=== PATIENT | male | born 1980 | race Caucasian/White ===

== ENCOUNTER 2017-08-19 14:29 | Emergency (ER) | payer BC ==
[2017-08-19] MEDS ORDERED: LIDOCAINE 5% PATCH TOP ONE (17:10)
--- NOTE | 2017-08-19 17:17 | Emergency Department Record ---
History of Present Illness - General Chief complaint: Pain Stated complaint: BRUISED LT SIDE, Time Seen by Provider: 08/19/17 17:10 Source: Patient Mode of Arrival: Ambulatory Limitations: No limitations - History of Present Illness Initial comments: 37 yo male presents to ED for evaluation of pain to the left chest wall after being struck in the chest 5 days ago by a large piece of machinery at work. Patient reports pain with trunk movement, coughing, deep inspiration, and left arm movement. Patient denies fevers, chills, or cough symptoms, denies health problems at his baseline. MD Complaint: Other (chest wall pain) Onset/Timin -: Days(s) Location: Left History of Same: No Radiation: Other Quality: Sharp, Stabbing Consistency: Getting worse Improves with: Nothing Worsens with: Nothing Associated Symptoms: Denies other symptoms - Related Data Previous Rx's Medication Instructions Recorded Ibuprofen [Motrin] 800 mg PO Q6H PRN #30 tab 08/19/17 Lidocaine Patch [Lidoderm] 1 ea TOP Q12H PRN #10 patch 08/19/17 Allergies Allergy/AdvReac Type Severity Reaction Status Date / Time No Known Drug Allergies Allergy Verified 06/20/15 12:42 Travel Screening - Travel/Exposure Within Last 30 Days Have you traveled within the last 30 days?: No - Travel Symptoms Symptom Screening: None Review of Systems Constitutional: Denies: Chills, Fever, Malaise, Night sweats Eyes: Denies: Eye discharge, Eye pain ENT: Denies: Congestion, Ear pain, Epistaxis Respiratory: Denies: Cough, Dyspnea Cardiovascular: Reports: Chest pain. Denies: Dyspnea on exertion, Palpitations Endocrine: Denies: Fatigue, Heat or cold intolerance Gastrointestinal: Denies: Abdominal pain, Nausea, Vomiting Genitourinary: Denies: Incontinence, Retention Musculoskeletal: Denies: Arthralgia, Back pain, Gout, Joint swelling Skin: Reports: Bruising (left chest wall). Denies: Change in color Neurological: Denies: Abnormal gait, Confusion, Headache, Tingling Psychiatric: Denies: Anxiety Hematological/Lymphatic: Denies: Anemia, Blood Clots Past Medical History - SOCIAL HISTORY Smoking Status: Never smoker Alcohol Use: None Drug Use: None - RESPIRATORY Hx Respiratory Disorders: No - CARDIOVASCULAR Hx Cardio Disorders: No - NEURO Hx Neuro Disorders: No - GI Hx GI Disorders: No - Hx Genitourinary Disorders: No - ENDOCRINE Hx Endocrine Disorders: No - MUSCULOSKELETAL Hx Musculoskeletal Disorders: No - PSYCH Hx Psych Problems: No - HEMATOLOGY/ONCOLOGY Hx Hematology/Oncology Disorders: No Family Medical History Any Significant Family History?: No Physical Exam - General General Appearance: Alert, Oriented x3, Cooperative, No acute distress Limitations: No limitations - Head Head exam: Atraumatic, Normocephalic, Normal inspection Head exam detail: negative: Abrasion, Contusion, Vivas's sign, General tenderness, Hematoma, Laceration - Eye Eye exam: Normal appearance. negative: Conjunctival injection, Periorbital swelling, Periorbital tenderness, Scleral icterus - ENT Ear exam: negative: Auricular hematoma, Auricular trauma Nasal Exam: negative: Active bleeding, Discharge, Dried blood, Sinus tenderness Mouth exam: negative: Drooling, Laceration, Tongue elevation - Neck Neck exam: Normal inspection. negative: Meningismus, Tenderness - Respiratory Respiratory exam: Normal lung sounds bilaterally, Chest wall tenderness (left chest wall TTP with mild ecchymosis present.). negative: Rhonchi, Stridor, Wheezes - Cardiovascular Cardiovascular Exam: Regular rate, Normal rhythm, Normal heart sounds - GI/Abdominal GI/Abdominal exam: Soft. negative: Distended, Rebound, Rigid, Tenderness - Rectal Rectal exam: Deferred - exam: Deferred - Extremities Extremities exam: Normal inspection. negative: Calf tenderness, Pedal edema, Tenderness - Back Back exam: Denies: CVA tenderness (R), CVA tenderness (L) - Neurological Neurological exam: Alert, Normal gait, Oriented X3 - Psychiatric Psychiatric exam: Normal affect, Normal mood - Skin Skin exam: negative: Abrasion Type of lesion: negative: abrasion Course Vital Signs 08/19/17 15:20 Temperature 98.2 F Pulse Rate 68 Respiratory 20 Rate Blood Pressure 138/66 Pulse Ox 97 - Reevaluation(s) Reevaluation #1: 08/19/17 17:14 Patient is PERC negative on examination. CXR: No rib fracture or pneumothorax present Reevaluation #2: 08/19/17 17:34 EKG: NSR 57 Normal axis, normal intervals No acute ST-T wave changes MDM: Patient is PERC negative on examination, EKG appears normal without any ischemic changes present, and the patient's history and physical examination are c/w chest wall contusion. CXR is negative for pneumothorax, and the patient is otherwise well appearing and stable for discharge with treatment for his chest wall contusion with Lidoderm and Motrin 800 mg as directed. Disposition Disposition: Discharge Clinical Impression: Chest wall pain Disposition: Home, Self-Care Condition: (2) Stable Instructions: Chest Wall Pain (ED) Additional Instructions: Return to ED if your symptoms worsen or if you have any concerns. Lidoderm patches as directed. Ibuprofen as directed. Follow-up with your family doctor in 3-5 days as directed. Prescriptions: Ibuprofen [Motrin] 800 mg PO Q6H PRN #30 tab PRN Reason: Pain - Moderate (5-7) Lidocaine Patch [Lidoderm] 1 ea TOP Q12H PRN #10 patch PRN Reason: Pain - Moderate (5-7) Forms: Patient Portal Access Time of Disposition: 17:17 Quality - Quality Measures Quality Measures: N/A - Blood Pressure Screening Does Patient Have Any of the Following: No Blood Pressure Classification: Pre-Hypertensive BP Reading Systolic Measurement: 125 Diastolic Measurement: 67 Screening for High Blood Pressure: < Pre-Hypertensive BP, F/U Documented > [ G8950] Pre-Hypertensive Follow-up Interventions: Referral to alternative/primary care provider.
--- NOTE | 2017-08-20 09:38 | RADIOLOGY REPORT ---
EXAM: LEFT RIBS WITH PA CHEST HISTORY: HIT ON LEFT SIDE OF CHEST AT WORK THREE DAYS AGO. PERSISTENT PAIN. TECHNIQUE: AP and oblique views of the left ribs were obtained as well as an upright AP view of the chest. Comparison: None. FINDINGS: There is normal bone mineralization. No acute fracture is seen. No lytic or blastic bone lesion is identified. The cardiomediastinal silhouette is normal in size and configuration. The pulmonary vasculature is nondilated. Minor patchy predominantly linear opacities are noted in the left lung base consistent with atelectasis or scarring. Infiltrate less likely. No gross costophrenic angle blunting or pneumothorax. There are mild degenerative changes scattered within the visualized spine. IMPRESSION: 1. NO ACUTE LEFT RIB FRACTURE VISUALIZED. 2. MINOR PATCHY PREDOMINANTLY LINEAR OPACITIES IN THE LATERAL LEFT LUNG BASE CONSISTENT WITH ATELECTASIS, SCARRING OR LESS LIKELY INFILTRATE. 3. MILD DEGENERATIVE CHANGES OF THE THORACIC SPINE. JOB NUMBER: [id number] MTDD
== END 2017-08-19 17:31 | disposition home or self-care (01) ==
LOC: ER 14:29
DX: S20.212A Contusion of left front wall of thorax, initial encounter (principal); W22.8XXA Striking against or struck by other objects, initial encounter; Y92.63 Factory as the place of occurrence of the external cause; Y99.0 Civilian activity done for income or pay
CPT/HCPCS: 93005; 93010; 99284

== ENCOUNTER 2018-06-02 19:09 | Emergency (ER) | payer BC, OTHER ==
[2018-06-02] MEDS ORDERED: DIPHENHYDRAMINE HCL 50 MG/ML VIAL IM ONE ×2 (19:30→19:31)
[2018-06-02] MEDS ORDERED: METHYLPREDNISOLONE PF 125MG/VIAL IM ONE (19:30)
--- NOTE | 2018-06-02 19:38 | Emergency Department Record ---
History of Present Illness - General Chief complaint: Bite Insect/other Stated complaint: BEE STING ALLEGIC/SHORT OF BREATH Time Seen by Provider: 06/02/18 19:28 Source: Patient Mode of Arrival: Ambulatory Limitations: No limitations - History of Present Illness Initial comments: The patient is here due to being stung twice to the R arm and hand just over an hour ago. He has had a hx of allergic rxns to insect stings intermittently in the past. The patient does have an Epi pen but did not use it. Now he is having itching to the R arm at the sting sites and feels like he may be getting hives all over and does feel mildly SOB. The patient did take 50 mg of Benadryl at home prior to presenting here. MD complaint: Insect bite/sting, Rash Onset/Timin -: Hour(s) Hx Tetanus Toxoid Vaccination: No Year of Tetanus Vaccination: 2009 Location: RU Severity: Moderate Quality: Other Consistency: Constant Improves with: None Worsens with: None Context: Witnessed insect bite Associated symptoms: Itching Treatments Prior to Arrival: Benadryl - Related Data Home Medications Medication Instructions Recorded Confirmed Last Taken Epinephrine [Epipen] 0.3 mg IM ASDIR PRN 06/02/18 06/02/18 Unknown Previous Rx's Medication Instructions Recorded Prednisone [Prednisone 20Mg] 40 mg PO DAILY #8 tab 06/02/18 Allergies Allergy/AdvReac Type Severity Reaction Status Date / Time bee venom protein (honey bee) Allergy HIVES Verified 06/02/18 19:25 Travel Screening - Travel/Exposure Within Last 30 Days Have you traveled within the last 30 days?: No - Travel Symptoms Symptom Screening: None Review of Systems Constitutional: Denies: Chills, Fever Eyes: Denies: Eye discharge ENT: Denies: Congestion Respiratory: Denies: Cough, Dyspnea Past Medical History - SOCIAL HISTORY Smoking Status: Never smoker Drug Use: None - RESPIRATORY Hx Respiratory Disorders: No - CARDIOVASCULAR Hx Cardio Disorders: No - NEURO Hx Neuro Disorders: No - GI Hx GI Disorders: No - Hx Genitourinary Disorders: No - ENDOCRINE Hx Endocrine Disorders: No - MUSCULOSKELETAL Hx Musculoskeletal Disorders: No - PSYCH Hx Psych Problems: No - HEMATOLOGY/ONCOLOGY Hx Hematology/Oncology Disorders: No Physical Exam - General General Appearance: Alert, Oriented x3, Cooperative, No acute distress - Head Head exam: Atraumatic, Normocephalic, Normal inspection - Eye Eye exam: Normal appearance, PERRL, EOMI - Neck Neck exam: Normal inspection - Respiratory Respiratory exam: Normal lung sounds bilaterally. negative: Respiratory distress, Rhonchi, Stridor, Wheezes - Cardiovascular Cardiovascular Exam: Regular rate, Normal rhythm, Normal heart sounds - GI/Abdominal GI/Abdominal exam: Soft, Normal bowel sounds. negative: Tenderness - Extremities Extremities exam: negative: Normal inspection (There is mild erythema at the sting sites to the R arm and hand. ) - Neurological Neurological exam: Alert. negative: Motor sensory deficit - Skin Skin exam: negative: Urticaria (There are no signs of any rash to the body except for the sting sites.) Course Vital Signs 06/02/18 19:23 Temperature 98.6 F Pulse Rate [ 77 Pulse Ox Probe] Respiratory 24 Rate Blood Pressure 123/89 [Left Arm] Pulse Ox 98 - Reevaluation(s) Reevaluation #1: The patient is doing much better at this time. He is much more relaxed and calm and has no ALANA or SOB. 06/02/18 19:55 Reevaluation #2: The patient is doing a lot better at this time. He has no ALANA, itching, or any trouble swallowing. 06/02/18 20:23 Reevaluation #3: The patient is doing a lot better at this time. He denies any pain, SOB, ALANA, voice changes, rash or itching. He feels ready for home. 06/02/18 20:45 Disposition Disposition: Discharge Clinical Impression: Allergic reaction to bee sting Disposition: Home, Self-Care Condition: (2) Stable Instructions: Insect Bite or Sting (ED) Additional Instructions: PLease continue the Benadryl 50 mg 4 times a day for 3-4 days and continue the Prednisone tomorrow. Please return to the ER for any return of the allergic rxn symptoms. Prescriptions: Prednisone [Prednisone 20Mg] 40 mg PO DAILY #8 tab Forms: Patient Portal Access Time of Disposition: 20:47 Quality - Quality Measures Quality Measures: N/A - Blood Pressure Screening View Details: Yes Does Patient Have Any of the Following: No Blood Pressure Classification: Normal BP Reading Systolic Measurement: 116 Diastolic Measurement: 72 Screening for High Blood Pressure: < Normal BP, F/U Not Required > [G8783]
[2018-06-02] MEDS ORDERED: IBUPROFEN 600 MG TABLET PO ONE (20:22)
== END 2018-06-02 20:51 | disposition home or self-care (01) ==
LOC: ER 19:09
DX: T63.441A Toxic effect of venom of bees, accidental (unintentional), initial encounter (principal); R06.02 Shortness of breath
CPT/HCPCS: 96372; 99282; 99283; J1200; J2930

== ENCOUNTER 2019-04-07 09:57 | Emergency (ER) | payer BC ==
[2019-04-07] MEDS ORDERED: CEFTRIAXONE SODIUM 2GM VIAL IM ONE (10:19)
--- NOTE | 2019-04-07 10:22 | Emergency Department Record ---
History of Present Illness - General Chief complaint: Extremity Problem Stated complaint: ELBOW INJURY Time Seen by Provider: 04/07/19 10:00 Source: Patient, RN notes reviewed Mode of Arrival: Ambulatory - History of Present Illness Initial comments: scrapped the left elbow and and the olecraonen bursa is swollen and not painful to move his joint.(7-9 days ago) [facility] right shoulder surgery with Dr Cee . Christopher saw him initially and did a CBC with WBC of 12,400 and sent him to ED Onset/Timin -: Week(s) Location: Left, Elbow Severity scale (1-10): 7 Quality: Aching Improves with: Nothing Worsens with: Nothing - Related Data Previous Rx's Medication Instructions Recorded Cephalexin [Keflex] 500 mg PO QID #40 cap 04/07/19 Naproxen [Naprosyn] 500 mg PO BID #20 tablet 04/07/19 Sulfamethoxazole/Trimethoprim 1 each PO BID #20 tablet 04/07/19 [Bactrim Ds Tablet] Allergies Allergy/AdvReac Type Severity Reaction Status Date / Time bee venom protein (honey bee) Allergy HIVES Unverified 04/07/19 08:17 Travel Screening - Travel/Exposure Within Last 30 Days Have you traveled within the last 30 days?: No - Travel/Exposure Within Last Year Have you traveled outside the [place] in the last year?: No - Additonal Travel Details Have you been exposed to anyone with a communicable illness?: No - Travel Symptoms Symptom Screening: None Review of Systems Reviewed: No additional complaints except as noted below Constitutional: Reports: As per HPI. Denies: Chills, Fever, Malaise, Night sweats, Weakness, Weight change Eyes: Reports: As per HPI. Denies: Eye discharge, Eye pain, Photophobia, Vision change ENT: Reports: As per HPI. Denies: Congestion, Dental pain, Ear pain, Epistaxis, Hearing loss, Throat pain Respiratory: Reports: As per HPI. Denies: Cough, Dyspnea, Hemoptysis, Stridor, Wheezes Cardiovascular: Reports: As per HPI. Denies: Arrhythmia, Chest pain, Dyspnea on exertion, Edema, Murmurs, Orthopnea, Palpitations, Paroxysmal nocturnal dyspnea, Rheumatic Fever, Syncope Endocrine: Reports: As per HPI. Denies: Fatigue, Heat or cold intolerance, Polydipsia, Polyuria Gastrointestinal: Reports: As per HPI. Denies: Abdominal pain, Constipation, Diarrhea, Hematemesis, Hematochezia, Melena, Nausea, Vomiting Genitourinary: Reports: As per HPI. Denies: Dysuria, Frequency, Hematuria, Incontinence, Retention, Testicular pain, Testicular mass, Urgency Musculoskeletal: Reports: As per HPI. Denies: Arthralgia, Back pain, Gout, Joint swelling, Myalgia, Neck pain Skin: Reports: As per HPI. Denies: Bruising, Change in color, Change in hair/nails, Lesions, Pruritus, Rash Neurological: Reports: As per HPI. Denies: Abnormal gait, Confusion, Headache, Numbness, Paresthesias, Seizure, Tingling, Tremors, Vertigo, Weakness Psychiatric: Reports: As per HPI. Denies: Anxiety, Auditory hallucinations, Depression, Homicidal thoughts, Suicidal thoughts, Visual hallucinations Hematological/Lymphatic: Reports: As per HPI. Denies: Anemia, Blood Clots, Easy bleeding, Easy bruising, Swollen glands Past Medical History - SOCIAL HISTORY Smoking Status: Never smoker Alcohol Use: None Drug Use: None - RESPIRATORY Hx Respiratory Disorders: No - CARDIOVASCULAR Hx Cardio Disorders: No - NEURO Hx Neuro Disorders: No - GI Hx GI Disorders: No - Hx Genitourinary Disorders: No - ENDOCRINE Hx Endocrine Disorders: No - MUSCULOSKELETAL Hx Musculoskeletal Disorders: No - PSYCH Hx Psych Problems: No - HEMATOLOGY/ONCOLOGY Hx Hematology/Oncology Disorders: No Family Medical History Any Significant Family History?: No Family Hx Comment (NOT TO BE USED IN PLACE OF ITEMS BELOW): denies Physical Exam - General General Appearance: Alert, Oriented x3, Cooperative, No acute distress - Head Head exam: Normal inspection - Eye Eye exam: Normal appearance, PERRL Pupils: Normal accommodation - ENT ENT exam: Normal exam, Mucous membranes moist, Normal external ear exam, Normal orophraynx, TM's normal bilaterally Ear exam: Normal external inspection. negative: External canal tenderness Nasal Exam: Normal inspection. negative: Discharge, Sinus tenderness Mouth exam: Normal external inspection, Tongue normal Teeth exam: Normal inspection. negative: Dental caries Throat exam: Normal inspection. negative: Tonsillar erythema, Tonsillar exudate - Neck Neck exam: Normal inspection, Full ROM. negative: Tenderness - Respiratory Respiratory exam: Normal lung sounds bilaterally. negative: Respiratory distress - Cardiovascular Cardiovascular Exam: Regular rate, Normal rhythm, Normal heart sounds - GI/Abdominal GI/Abdominal exam: Soft, Normal bowel sounds. negative: Tenderness - Rectal Rectal exam: Deferred - exam: Deferred - Extremities Extremities exam: Full ROM, Normal capillary refill, Tenderness, Other (olecronen bursa is swollen but not tense and not warm ) - Back Back exam: Reports: Normal inspection, Full ROM. Denies: Muscle spasm, Rash noted, Tenderness - Neurological Neurological exam: Alert, Normal gait, Oriented X3, Reflexes normal - Psychiatric Psychiatric exam: Normal affect, Normal mood - Skin Skin exam: Dry, Intact, Normal color, Warm Disposition Clinical Impression: Olecranon bursitis Qualifiers: Laterality: left Qualified Code(s): M70.22 - Olecranon bursitis, left elbow Abrasion of elbow Qualifiers: Encounter type: initial encounter Laterality: left Qualified Code(s): S50.312A - Abrasion of left elbow, initial encounter Disposition: Home, Self-Care Condition: (1) Good Instructions: Elbow Bursitis (ED) Additional Instructions: follow up with Dr Larsen in 1 to 7 days Prescriptions: Sulfamethoxazole/Trimethoprim [Bactrim Ds Tablet] 1 each PO BID #20 tablet Cephalexin [Keflex] 500 mg PO QID #40 cap Naproxen [Naprosyn] 500 mg PO BID #20 tablet Forms: Patient Portal Access Time of Disposition: 10:27 Quality - Quality Measures Quality Measures: N/A - Blood Pressure Screening Does Patient Have Any of the Following: No Blood Pressure Classification: Pre-Hypertensive BP Reading Systolic Measurement: 149 Diastolic Measurement: 84 Screening for High Blood Pressure: < Pre-Hypertensive BP, F/U Documented > [G8950] Pre-Hypertensive Follow-up Interventions: Referral to alternative/primary care provider.
== END 2019-04-07 10:52 | disposition home or self-care (01) ==
LOC: ER 09:57
DX: S50.312A Abrasion of left elbow, initial encounter (principal); M70.22 Olecranon bursitis, left elbow; W22.8XXA Striking against or struck by other objects, initial encounter
CPT/HCPCS: 96372; 99283